=== PATIENT | male | born 1955 | race Caucasian/White ===

== ENCOUNTER 2018-01-02 07:20 | Emergency (ER) | payer SELFPAY ==
[2018-01-02 08:20] LABS: Hematocrit 38 % (42-52); Hemoglobin 13.1 g/dl (14.0-18.0); Mean Corpuscular HGB Conc 35 g/dl (31-36); Mean Corpuscular Hemoglobin 37 pg (27-31); Mean Corpuscular Volume 106 fL (80-94); Mean Platelet Volume 8.1 um3 (7.4-10.4); Platelet Count 225 10^3/ul (150-450); Red Cell Distribution Width 13 % (10.5-15); White Blood Count 5.7 10^3/ul (3.5-10.8)
[2018-01-02 08:21] LABS: INR 0.92 (0.77-1.02)
--- NOTE | 2018-01-02 08:42 | RAD ---
HISTORY: trauma to the L chest wall - streaks of bleeding COMPARISONS: None TECHNIQUE: Multiple contiguous axial CT scans of the chest were obtained without intravenous contrast. Coronal and sagittal multiplanar reformations are also submitted for review. FINDINGS: NECK AND THYROID: The lower neck and thyroid are unremarkable. CHEST WALL: There is no lower cervical, axillary, or supraclavicular lymphadenopathy by size criteria. HEART AND PERICARDIUM: The heart is unremarkable. AORTA AND PULMONARY VASCULATURE: The aorta and pulmonary vasculature are normal. MEDIASTINUM: There are subcentimeter short axis mediastinal lymph nodes measuring up to 0.8 cm along the right paratracheal space. LUIS EDUARDO: There is no hilar lymphadenopathy by size criteria. AIRWAY AND ESOPHAGUS: The airway is unremarkable, without endobronchial filling defect. The esophagus is grossly normal. LUNG PARENCHYMA: The lungs are clear. PLEURA: No pleural abnormalities are noted. UPPER ABDOMEN: There is fatty infiltration of liver. BONES AND SOFT TISSUES: There is a nondisplaced fracture of the left sixth rib with minimal periosteal reaction consistent with healing response. OTHER: None. IMPRESSION: 1. NONDISPLACED SUBACUTE APPEARING FRACTURE OF THE LEFT SIXTH RIB. 2. FATTY INFILTRATION OF THE LIVER.
[2018-01-02 09:33] VITALS: BP 139/97
--- NOTE | 2018-01-02 10:03 | ED ---
Complex/Multi-Sys Presentation - HPI Summary HPI Summary: Patient is a 62-year-old male with a history of smoking, previous drug and alcohol use presenting to the ED after 2 weeks of a trauma to the left rib cage. He states he was carrying up laundry when he tripped and fell landing on his left side. He endorses pain immediately, however has been able to manage at home. He states over the past 3-4 days he has been coughing up a small amount of blood-streaked sputum. This was concerning as he had had a recent trauma to the area 2 weeks ago. He called his PCP who recommended him come to the ED for further evaluation. He denies any abdominal pain, urinary symptoms. Denies any odynophagia or dysphagia. He is eating and drinking okay. He denies any shortness of breath or chest pain otherwise, however he states he has been breathing shallowly due to the pain. Has had some cold symptoms, but denies any fevers, sweats, chills. - History Of Current Complaint Chief Complaint: EDChestWallPain Time Seen by Provider: 01/02/18 07:29 Hx Obtained From: Patient Onset/Duration: Sudden Onset Timing: Constant Severity Currently: Moderate Severity Initially: Moderate Location: Negative Associated Signs And Symptoms: Positive: Remote Trauma - Allergies/Home Medications Allergies/Adverse Reactions: Allergies Allergy/AdvReac Type Severity Reaction Status Date / Time No Known Allergies Allergy Verified 01/02/18 07:35 PMH/Surg Hx/FS Hx/Imm Hx Previously Healthy: Yes - Immunization History Hx Pertussis Vaccination: No Immunizations Up to Date: Yes Infectious Disease History: No Infectious Disease History: Denies: Traveled Outside the [place] in Last 30 Days - Social History Occupation: Employed Full-time Lives: With Family - I Alcohol Use: Occasionally Hx Substance Use: No Substance Use Type: Reports: None Hx Tobacco Use: Yes Smoking Status (MU): Heavy Every Day Tobacco Smoker Review of Systems Constitutional: Negative Negative: Fever, Chills, Fatigue Negative: Palpitations, Chest Pain Negative: Shortness Of Breath, Cough Positive: Arthralgia - left rib cage, Myalgia Neurological: Negative All Other Systems Reviewed And Are Negative: Yes - sitting Physical Exam Triage Information Reviewed: Yes Vital Signs On Initial Exam: Initial Vitals Temp Pulse Resp BP Pulse Ox 97.2 F 91 16 150/104 96 01/02/18 07:21 01/02/18 07:21 01/02/18 07:21 01/02/18 07:21 01/02/18 07:21 Vital Signs Reviewed: Yes Appearance: Positive: Well-Appearing, Well-Nourished Skin: Positive: Warm, Skin Color Reflects Adequate Perfusion Head/Face: Positive: Normal Head/Face Inspection Eyes: Positive: EOMI, KAITLYN, Conjunctiva Clear Neck: Positive: Supple, No Lymphadenopathy Respiratory/Lung Sounds: Positive: Clear to Auscultation, Breath Sounds Present Cardiovascular: Positive: RRR, Pulses are Symmetrical in both Upper and Lower Extremities Musculoskeletal: Positive: Normal, Strength/ROM Intact, Pain @ - left rib pain Neurological: Positive: Speech Normal Psychiatric: Positive: Normal, Affect/Mood Appropriate - [place] Coma Scale Best Eye Response: 4 - Spontaneous Best Motor Response: 6 - Obeys Commands Best Verbal Response: 5 - Oriented Coma Scale Total: 15 Diagnostics - Vital Signs Vital Signs Temp Pulse Resp BP Pulse Ox 01/02/18 09:52 97.6 F 78 18 139/97 96 01/02/18 09:31 78 139/97 96 01/02/18 09:00 76 94 01/02/18 08:30 78 141/85 95 01/02/18 08:11 144/107 01/02/18 08:00 79 97 01/02/18 07:41 82 145/97 96 01/02/18 07:40 84 97 01/02/18 07:21 97.2 F 91 16 150/104 96 - Laboratory Lab Results: Lab Results 01/02/18 01/02/18 Range/Units 08:09 08:09 WBC 5.7 (3.5-10.8) 10^3/ul RBC 3.60 L (4.00-5.40) 10^6/ul Hgb 13.1 L (14.0-18.0) g/dl Hct 38 L (42-52) % MCV 106 H (80-94) fL MCH 37 H (27-31) pg MCHC 35 (31-36) g/dl RDW 13 (10.5-15) % Plt Count 225 (150-450) 10^3/ul MPV 8.1 (7.4-10.4) um3 INR (Anticoag Therapy) 0.92 (0.77-1.02) Result Diagrams: 01/02/18 08:09 Lab Statement: Any lab studies that have been ordered have been reviewed, and results considered in the medical decision making process. Complex Multi-Symp Course/Dx Course Of Treatment: CT of the chest obtained due to possible rib fracture with trauma. Also due to his smoking history, CT was the better choice than x-ray. Shows subacute left sixth rib fracture with no evidence of pneumonia or other infectious process. On physical examination, he has no pain to the abdomen, specifically more over the spleen and liver. Denies any fevers, sweats, chills. He states he has been otherwise well. Small amount of blood streaked sputum over the past 3-4 days which was a concern for him as he has had this recent trauma. He continues to breathe well and denies any chest pain, however he states he is breathing more shallowly. For this reason he is given a spirometer and is encouraged to follow back up with his PCP. Likely blood- streaked sputum from cold symptoms and small microtears from the larynx and not related to trauma. - Diagnoses Provider Diagnoses: Left rib fracture, Hemoptysis Discharge - Sign-Out/Discharge Documenting (check all that apply): Patient Departure - Discharge Plan Condition: Stable Disposition: HOME Patient Education Materials: Rib Fracture (ED) Referrals: Blayne NOBLES,Mal Monreal [Primary Care Provider] - Additional Instructions: Spirometer given - use this several times per day to remind you to take deep breaths Please follow up with your PCP You have a left 6th rib fracture - Billing Disposition and Condition Condition: STABLE Disposition: Home
== END 2018-01-02 09:52 | disposition home or self-care (01) ==
LOC: ED 07:20
DX: S22.32XA Fracture of one rib, left side, initial encounter for closed fracture (principal); W01.0XXA Fall on same level from slipping, tripping and stumbling without subsequent striking against object, initial encounter; Y93.E2 Activity, laundry; Y92.9 Unspecified place or not applicable; F17.200 Nicotine dependence, unspecified, uncomplicated; K76.0 Fatty (change of) liver, not elsewhere classified
CPT/HCPCS: 36415; 71250; 85027; 85610; 99282